=== PATIENT | male | born 1965 | race Caucasian/White ===

== ENCOUNTER 2017-11-04 10:58 | Inpatient (IN) | payer BC ==
[~2017-11-04] VITALS: Ht 167.6 cm; Wt 70.5 kg
[2017-11-04] MEDS ORDERED: TRAZ-147 PO (11:23)
[2017-11-04] MEDS ORDERED: BUSP5TAB20 PO (11:29)
[2017-11-04] MEDS ORDERED: LORA1TAB3 PO (11:29)
[2017-11-04] MEDS ORDERED: ESCI10TA PO (11:29)
[2017-11-04 12:24] LABS: AMPHET/METH SCREEN,URINE NEGATIVE (NEGATIVE); BARBITURATE SCREEN, URINE NEGATIVE (NEGATIVE); BENZODIAZEPINES SCREEN,URINE NEGATIVE (NEGATIVE); CANNABINOID SCREEN,URINE NEGATIVE (NEGATIVE); COCAINE SCREEN,URINE NEGATIVE (NEGATIVE); METHADONE SCREEN, URINE NEGATIVE (NEGATIVE); OPIATE SCREEN,URINE NEGATIVE (NEGATIVE)
[2017-11-04 12:25] LABS: PHENCYCLIDINE SCREEN,URINE NEGATIVE (NEGATIVE)
[2017-11-04] MEDS ORDERED: GuaiFENesin/D-METHORPHAN [SUGAR-FREE] 200-20MG/10 ML SYRUP UDCUP PO PRN (13:00)
[2017-11-04] MEDS ORDERED: PROMETHAZINE HCL 25 MG TABLET PO PRN (13:00)
[2017-11-04] MEDS ORDERED: MAG HYDROX/AL HYDROX/SIMETH ES 30 ML SUSPENSION UDCUP PO PRN (13:00)
[2017-11-04] MEDS ORDERED: LOPERAMIDE HCL 2 MG CAPSULE PO PRN (13:00)
[2017-11-04] MEDS ORDERED: MAGNESIUM HYDROXIDE SUSPENSION 30 ML UDCUP PO PRN (13:00)
[2017-11-04] MEDS ORDERED: ACETAMINOPHEN 325 MG TABLET PO PRN (13:00)
[2017-11-04] MEDS ORDERED: QUEtiapine FUMARATE 100 MG TABLET PO PRN (13:00)
[2017-11-04] MEDS ORDERED: HydrOXYzine PAMOATE 50 MG CAPSULE PO PRN (13:00)
[2017-11-04] MEDS ORDERED: LORazepam 2 MG TABLET PO PRN (13:00)
[2017-11-04] MEDS ORDERED: TUBERCULIN, PURIFIED PROTEIN DERIVATIVE 5 TU/0.1 ML SYG ID ONE (13:00)
[2017-11-04 13:16] LABS: BASOPHILS % (AUTO) 0.4 % (0.0-2.0); EOSINOPHILS % (AUTO) 0.1 % (1.0-6.0); HEMATOCRIT 43.4 % (41-53); HEMOGLOBIN 14.8 g/dL (13.5-17.5); LYMPHOCYTES # (AUTO) 0.6 K/uL (1.0-4.8); MEAN CORPUSCULAR HEMOGLOBIN 31.1 pg (26.0-34.0); MEAN CORPUSCULAR HGB CONC 34.2 G/dL (31.0-37.0); MEAN CORPUSCULAR VOLUME 91 fL (80-100); MONOCYTES # (AUTO) 0.4 K/uL (0.1-1.0); MONOCYTES % (AUTO) 7.7 % (2.0-9.0); NEUTROPHILS # (AUTO) 4.6 K/uL (1.8-7.7); NEUTROPHILS % (AUTO) 81.8 % (40.0-70.0); PLATELET COUNT (AUTO) 213 K/uL (150-450); RED BLOOD CELL COUNT(AUTO) 4.76 MIL/uL (4.50-5.90)
[2017-11-04 13:33] LABS: ANION GAP 7 mmol/L (8-16); CALCIUM, TOTAL 8.6 mg/dL (8.8-10.5); CARBON DIOXIDE 28 mmol/L (22-29); CHLORIDE 102 mmol/L (98-107); CREATININE 1.01 mg/dL (0.60-1.30); GLOMERULAR FILTR. RATE CALC > 60 mL/min (>60); GLUCOSE,RANDOM 98 mg/dL (70-110); POTASSIUM 3.9 mmol/L (3.5-5.1); SODIUM SERUM 137 mmol/L (136-145); UREA NITROGEN, BLOOD 17 mg/dL (7-18)
[2017-11-04 13:40] LABS: ALANINE AMINOTRANSFERASE 23 U/L (12-78); ALKALINE PHOSPHATASE 66 U/L (46-116); ASPARTATE AMINOTRANSFERASE 20 U/L (15-37); BILIRUBIN,TOTAL 0.8 mg/dL (0.1-1.0); TOTAL PROTEIN, SERUM 7.2 g/dL (6.4-8.2)
[2017-11-04 15:07] VITALS: BP 152/96
[2017-11-04 16:11] VITALS: BP 133/78
[2017-11-04 16:20] VITALS: BP 133/78
[2017-11-04] MEDS: BusPIRone HCL 15 MG TABLET PO SCH (16:41)
[2017-11-04] MEDS: THIAMINE HCL 100 MG TABLET PO SCH (16:41)
[2017-11-04] MEDS: TraZODone HCL 50 MG TABLET PO SCH (20:06)
[2017-11-04 22:44] VITALS: BP 132/70
[2017-11-05 06:27] VITALS: BP 118/66
[2017-11-05 08:15] VITALS: BP 112/60
[2017-11-05 08:37] LABS: HEMOGLOBIN A1C 4.8 % (4.5-6.2)
[2017-11-05 08:51] LABS: ALBUMIN 3.4 g/dL (3.4-5.0); BILIRUBIN,TOTAL 0.5 mg/dL (0.1-1.0); CALCIUM, TOTAL 8.7 mg/dL (8.8-10.5); CHOL/HDL RATIO 2.4 (4.2-7.3); CREATININE 1.33 mg/dL (0.60-1.30); FREE T4 (FREE THYROXINE) 1.02 ng/dL (0.76-1.46); POTASSIUM 4.3 mmol/L (3.5-5.1); THYROID STIMULATING HORMONE 0.52 uIU/mL (0.36-3.74); TOTAL PROTEIN, SERUM 6.3 g/dL (6.4-8.2)
[2017-11-05] MEDS: THIAMINE HCL 100 MG TABLET PO SCH ×2 (08:51→16:45)
[2017-11-05] MEDS: MULTIVITAMINS WITH MINERALS, THERAPEUTIC TABLET PO SCH (08:51)
[2017-11-05] MEDS: FOLIC ACID 1 MG TABLET PO SCH (08:51)
[2017-11-05] MEDS: BusPIRone HCL 15 MG TABLET PO SCH ×2 (08:51→16:46)
[2017-11-05] MEDS ORDERED: ESCITALOPRAM OXALATE 10 MG TABLET PO SCH (09:00)
[2017-11-05 12:03] LABS: BASOPHILS % (AUTO) 0.5 % (0.0-2.0); EOSINOPHILS % (AUTO) 0.8 % (1.0-6.0); HEMOGLOBIN 13.9 g/dL (13.5-17.5); LYMPHOCYTES % (AUTO) 21.9 % (22.0-44.0); MEAN CORPUSCULAR HEMOGLOBIN 31.6 pg (26.0-34.0); MEAN CORPUSCULAR VOLUME 93 fL (80-100); MONOCYTES # (AUTO) 0.5 K/uL (0.1-1.0); MONOCYTES % (AUTO) 10.9 % (2.0-9.0); NEUTROPHILS # (AUTO) 3.1 K/uL (1.8-7.7); NEUTROPHILS % (AUTO) 65.9 % (40.0-70.0); PLATELET COUNT (AUTO) 195 K/uL (150-450); RED BLOOD CELL COUNT(AUTO) 4.42 MIL/uL (4.50-5.90)
[2017-11-05 16:27] VITALS: BP 130/70
[2017-11-05] MEDS: TraZODone HCL 50 MG TABLET PO SCH (20:47)
[2017-11-06 00:45] VITALS: BP 120/90
[2017-11-06] MEDS: ZOLPIDEM TARTRATE 10 MG TABLET PO PRN (00:46)
[2017-11-06 08:56] VITALS: BP 137/76
[2017-11-06] MEDS: BusPIRone HCL 15 MG TABLET PO SCH ×2 (09:18→16:48)
[2017-11-06] MEDS: ESCITALOPRAM OXALATE 20 MG TABLET PO SCH (09:18)
[2017-11-06] MEDS: FOLIC ACID 1 MG TABLET PO SCH (09:18)
[2017-11-06] MEDS: THIAMINE HCL 100 MG TABLET PO SCH ×2 (09:19→16:48)
[2017-11-06] MEDS: MULTIVITAMINS WITH MINERALS, THERAPEUTIC TABLET PO SCH (09:19)
[2017-11-06] MEDS ORDERED: TRAZ-144 PO (14:40)
[2017-11-06] MEDS ORDERED: BUSP15 PO (14:40)
[2017-11-06] MEDS ORDERED: ESCI20TA36 PO (14:40)
[2017-11-06 16:00] VITALS: BP 136/75
[2017-11-06] MEDS: TraZODone HCL 50 MG TABLET PO SCH (20:11)
[2017-11-07] MEDS: ZOLPIDEM TARTRATE 10 MG TABLET PO PRN (00:05)
[2017-11-07 01:25] VITALS: BP 120/69
[2017-11-07 08:46] VITALS: BP 158/89
[2017-11-07] MEDS: ESCITALOPRAM OXALATE 20 MG TABLET PO SCH (09:21)
[2017-11-07] MEDS: MULTIVITAMINS WITH MINERALS, THERAPEUTIC TABLET PO SCH (09:22)
[2017-11-07] MEDS: THIAMINE HCL 100 MG TABLET PO SCH (09:22)
[2017-11-07] MEDS: FOLIC ACID 1 MG TABLET PO SCH (09:22)
[2017-11-07] MEDS: BusPIRone HCL 15 MG TABLET PO SCH (09:22)
== END 2017-11-07 10:52 | disposition home or self-care (01) | DRG 881 ==
LOC: EMS 10:59 → EEVIPCON 10:59 → B3A 13:51 → B2S 15:43
PROVIDERS: ADMIT Psychiatry & Neurology Psychiatry; ATTEND Psychiatry & Neurology Psychiatry
DX: F32.9 Major depressive disorder, single episode, unspecified (principal); F10.231 Alcohol dependence with withdrawal delirium; R45.851 Suicidal ideations; F41.9 Anxiety disorder, unspecified; S05.12XA Contusion of eyeball and orbital tissues, left eye, initial encounter; Z59.9 Problem related to housing and economic circumstances, unspecified; Z91.19 Patient's noncompliance with other medical treatment and regimen; Z79.899 Other long term (current) drug therapy; X83.8XXA Intentional self-harm by other specified means, initial encounter; Y93.89 Activity, other specified; Y92.89 Other specified places as the place of occurrence of the external cause; Y99.8 Other external cause status
CPT/HCPCS: 83036; 84439; 84443; 86592; 99285; G0480